=== PATIENT | male | born 1945 | race Caucasian/White ===

== ENCOUNTER 2021-07-24 10:00 | Outpatient (RCR) | payer MEDICARE | END 2021-07-26 | LOC: PT 10:00 | PROVIDERS: ATTEND Specialist | DX: M17.12 Unilateral primary osteoarthritis, left knee (principal) ==

== ENCOUNTER 2021-08-24 09:57 | Outpatient (RCR) | payer MEDICARE | END 2021-08-25 | LOC: PT 09:57 | PROVIDERS: ATTEND Specialist | DX: M17.12 Unilateral primary osteoarthritis, left knee (principal) ==

== ENCOUNTER 2021-08-26 10:52 | Outpatient (RCR) | payer MEDICARE | END 2021-09-25 | LOC: PT 10:52 | PROVIDERS: ATTEND Specialist | DX: M17.12 Unilateral primary osteoarthritis, left knee (principal) | CPT/HCPCS: 97139 ==

== ENCOUNTER 2022-10-21 12:51 | Observation (INO) | payer MEDICARE, OTHER ==
[~2022-10-21] VITALS: Ht 190.5 cm; Wt 79.4 kg
[2022-10-21] MEDS ORDERED: HYDROCODONE/APAP 7.5MG-325MG 1 EA TAB PO ONE (13:45)
[2022-10-21] MEDS ORDERED: HYDROCODONE/APAP 7.5MG-325MG 1 EA TAB ONE (14:07)
[2022-10-21] MEDS ORDERED: METHOCARBAMOL 100MG/1ML 10ML VIAL IV ONE (16:00)
[2022-10-21] MEDS: SODIUM CHLORIDE 0.9% 1000ML 1,000 ML IV SCH ×2 (16:09→22:06)
[2022-10-21] MEDS: ONDANSETRON HCL INJ 2MG/ML 2ML 2 MG/ML VIAL IV PRN (16:09)
[2022-10-21] MEDS: Morphine 4mg INJECTION 4 MG/ML INJ IV PRN (16:09)
[2022-10-21] MEDS ORDERED: HYDROCODONE/APAP 7.5MG-325MG 1 EA TAB PO PRN (16:15)
[2022-10-21] MEDS ORDERED: METHOCARBAMOL INJ 1,000 MG in SODIUM CHLORIDE 0.9% 100 ML IV ONE ×4 (18:00)
[2022-10-21 18:36] LABS: BASOPHILS % 0.4 % (0.0-1.0); EOSINOPHILS % 0.4 % (0.0-6.0); HEMATOCRIT 40.1 % (38.2-49.6); HEMOGLOBIN 12.3 g/dL (14.0-18.0); LYMPHOCYTES # (AUTO) 1.3 (1.0-3.2); LYMPHOCYTES % 11.7 % (18.0-39.1); MEAN CORPUSCULAR HEMOGLOBIN 31.5 pg (28-32); MEAN CORPUSCULAR HGB CONC 30.7 g/dL (31-35); MEAN CORPUSCULAR VOLUME 102.6 fL (81-99); MONOCYTES # (AUTO) 0.7 (0.2-0.8); MONOCYTES % 5.8 % (4.4-11.3); NEUTROPHILS # (AUTO) 9.2 (2.1-6.9); NEUTROPHILS % 81.3 % (38.7-80.0); PLATELET COUNT 193 x10e3/uL (140-360); RED BLOOD COUNT 3.91 x10e6/uL (4.3-5.7); RED CELL DISTRIBUTION WIDTH 12.4 % (11.7-14.4)
[2022-10-21 18:46] LABS: ANION GAP 11.5 mmol/L (8-16); CALCIUM 8.6 mg/dL (8.4-10.2); CREATININE, SERUM 0.84 mg/dL (0.72-1.25); POTASSIUM 4.5 mmol/L (3.5-5.1)
[2022-10-21 20:00] VITALS: BP 130/67
[2022-10-21 21:30] VITALS: BP 130/67
[2022-10-21] MEDS ORDERED: PROTONIX20 MG PO (21:38)
[2022-10-22] VITALS: BP 142/89
[2022-10-22] MEDS: ONDANSETRON HCL INJ 2MG/ML 2ML 2 MG/ML VIAL IV PRN (05:31)
[2022-10-22] MEDS: Morphine 4mg INJECTION 4 MG/ML INJ IV PRN (05:31)
[2022-10-22] MEDS: PANTOPRAZOLE SOD 40 MG TABEC PO SCH ×2 (07:30→08:00)
[2022-10-22 07:37] VITALS: BP 120/59
[2022-10-22 08:00] VITALS: BP 120/59
[2022-10-22] MEDS: MULTIVITAMINS/MINERALS TAB PO SCH ×2 (09:00→09:55)
[2022-10-22] MEDS ORDERED: GABAPENTIN 100 MG CAP PO SCH (09:00)
[2022-10-22] MEDS: ACETAMINOPHEN/CODEINE 300MG - 30MG TAB PO PRN ×2 (10:12→14:14)
[2022-10-22 11:19] VITALS: BP 104/51
[2022-10-22] MEDS ORDERED: ACETAMINOPHEN-1 EAC4 PO (12:57)
[2022-10-22 15:21] VITALS: BP 117/50
== END 2022-10-22 15:43 | disposition home or self-care (01) ==
LOC: ER 13:32 → ERHOLD 15:08 → MED/SURG2 19:22
PROVIDERS: ADMIT Internal Medicine; ATTEND Internal Medicine
DX: S22.42XA Multiple fractures of ribs, left side, initial encounter for closed fracture (principal); W18.09XA Striking against other object with subsequent fall, initial encounter; Y93.01 Activity, walking, marching and hiking; Y92.89 Other specified places as the place of occurrence of the external cause; Z20.822 Contact with and (suspected) exposure to COVID-19; K21.9 Gastro-esophageal reflux disease without esophagitis; K22.70 Barrett's esophagus without dysplasia
CPT/HCPCS: 0223U; 36415; 71101; 72072; 80048; 85025; 94799 ×2; 97161; 99284; G0378 ×2; J2270 ×2; J2405 ×2; J2800; J7030; J7050

== ENCOUNTER → 2023-11-02 | Outpatient (REF) | payer MEDICARE ==
[~2023-11-02] MED LIST: ACETAMINOPHEN-1 EAC4 PO; PROTONIX20 MG PO
== END ==
LOC: DX 10:27
PROVIDERS: ATTEND Internal Medicine Gastroenterology
DX: K22.70 Barrett's esophagus without dysplasia (principal); K21.00 Gastro-esophageal reflux disease with esophagitis, without bleeding
CPT/HCPCS: 74230

== ENCOUNTER → 2024-06-25 | Outpatient (RCR) | payer MEDICARE | LOC: PT 06-07 13:15 | PROVIDERS: ATTEND Orthopaedic Surgery Sports Medicine | DX: M17.12 Unilateral primary osteoarthritis, left knee (principal) ==

== ENCOUNTER 2024-07-23 10:00 | Outpatient (RCR) | payer MEDICARE | END 2024-07-26 | LOC: PT 10:00 | PROVIDERS: ATTEND Orthopaedic Surgery Sports Medicine | DX: Z47.1 Aftercare following joint replacement surgery (principal); Z96.652 Presence of left artificial knee joint; M62.81 Muscle weakness (generalized); M25.562 Pain in left knee; M25.662 Stiffness of left knee, not elsewhere classified; R26.2 Difficulty in walking, not elsewhere classified ==

== ENCOUNTER 2025-03-08 09:24 | Emergency (ER) | payer MEDICARE ==
[~2025-03-08] VITALS: Ht 190.5 cm; Wt 74.8 kg
[2025-03-08 09:40] VITALS: TEMP 98.3
[2025-03-08 09:55] LABS: BASOPHILS # (AUTO) 0.1 (0.0-0.1); BASOPHILS % 0.9 % (0.0-1.0); EOSINOPHILS # (AUTO) 0.2 (0.0-0.4); EOSINOPHILS % 3.7 % (0.0-6.0); HEMATOCRIT 38.5 % (38.2-49.6); HEMOGLOBIN 12.5 g/dL (14.0-18.0); LYMPHOCYTES % 31.3 % (18.0-39.1); MEAN CORPUSCULAR HEMOGLOBIN 31.2 pg (28-32); MEAN CORPUSCULAR HGB CONC 32.5 g/dL (31-35); MONOCYTES # (AUTO) 0.6 (0.2-0.8); MONOCYTES % 8.6 % (4.4-11.3); NEUTROPHILS # (AUTO) 3.6 (2.1-6.9); NEUTROPHILS % 55.3 % (38.7-80.0); PLATELET COUNT 188 x10e3/uL (140-360); RED BLOOD COUNT 4.01 x10e6/uL (4.3-5.7); RED CELL DISTRIBUTION WIDTH 13.2 % (11.7-14.4); WHITE BLOOD COUNT 6.52 x10e3/uL (4.8-10.8)
[2025-03-08 10:15] LABS: ALBUMIN/GLOBULIN RATIO 1.3 (0.8-2.0); ANION GAP 14.5 mmol/L (8-16); BILIRUBIN,TOTAL 0.5 mg/dL (0.2-1.2); CALCIUM 9.1 mg/dL (8.4-10.2); CREATININE, SERUM 0.96 mg/dL (0.72-1.25); POTASSIUM 4.5 mmol/L (3.5-5.1); TOTAL PROTEIN 7.1 g/dL (6.5-8.1)
[2025-03-08 11:46] LABS: BACTERIA,URINE FEW /HPF; BILIRUBIN,URINE NEGATIVE (NEGATIVE); CLARITY,URINE CLEAR (CLEAR); COLOR,URINE YELLOW (YELLOW); EPITHELIAL CELLS,URINE FEW /LPF; GLUCOSE, URINE NEGATIVE (NEGATIVE); KETONES,URINE NEGATIVE (NEGATIVE); LEUKOCYTE ESTERASE ,URINE NEGATIVE (NEGATIVE); NITRITE,URINE NEGATIVE (NEGATIVE); PH,URINE 6.5 (5 - 7); PROTEIN,URINE DIPSTICK NEGATIVE (NEGATIVE); RBC,URINE 0-5 /HPF (0-5); URINE UROBILINOGEN 0.2 mg/dL (0.2 - 1)
[2025-03-08 12:30] VITALS: PULSE 60; RESP 16; O2SAT 94
== END 2025-03-08 12:43 | disposition home or self-care (01) ==
LOC: ER 09:34
DX: R42 Dizziness and giddiness (principal); K21.9 Gastro-esophageal reflux disease without esophagitis
CPT/HCPCS: 36415; 70450; 71045; 80053; 81001; 84484; 85025; 87086; 93005; 99283

== ENCOUNTER → 2025-05-31 | Day surgery (SDC) | payer MEDICARE ==
[2025-05-30 08:49] LABS: BASOPHILS % 0.6 % (0.0-1.0); EOSINOPHILS % 5.0 % (0.0-6.0); LYMPHOCYTES % 28.7 % (18.0-39.1); MONOCYTES % 8.3 % (4.4-11.3); NEUTROPHILS % 57.2 % (38.7-80.0); RED CELL DISTRIBUTION WIDTH 13.2 % (11.7-14.4)
[~2025-05-31] MED LIST changes: +FAMOTIDINE20 MG PO; +LIDOCAINE HCL 2% LOCAL INJ 5 ML SDV VIAL INJ ONE; +PROPOFOL IV EMULSION 10 MG/ML 20 ML VIAL ONE
[2025-05-31] MEDS: LACTATED RINGER'S 1,000 ML ONE (13:09)
[2025-05-31 15:15] VITALS: TEMP 97.7
[2025-05-31 15:35] VITALS: BP 131/75; PULSE 71; RESP 18; O2SAT 99
== END | disposition home or self-care (01) ==
LOC: OR 12:29
PROVIDERS: ATTEND Internal Medicine Gastroenterology
DX: Z09 Encounter for follow-up examination after completed treatment for conditions other than malignant neoplasm (principal); K31.7 Polyp of stomach and duodenum; K29.70 Gastritis, unspecified, without bleeding; K22.70 Barrett's esophagus without dysplasia; K21.00 Gastro-esophageal reflux disease with esophagitis, without bleeding; K44.9 Diaphragmatic hernia without obstruction or gangrene; K31.89 Other diseases of stomach and duodenum; Z98.890 Other specified postprocedural states; Z01.812 Encounter for preprocedural laboratory examination
CPT/HCPCS: 36415; 43239; 85025; J2003; J2704; J7121